=== PATIENT | female | born 1985 | race Asian ===

== ENCOUNTER 2016-07-17 15:10 | Emergency (ER) | payer BC ==
[2016-07-17] MEDS ORDERED: DUONEB INH ONE (17:45)
[2016-07-17] MEDS ORDERED: METHYLPRED SOD SUCC 125 MG/2 ML VIAL ONE (18:02)
[2016-07-17] MEDS ORDERED: KETOROLAC 30 MG/ML VIAL ONE (18:02)
[2016-07-17] MEDS ORDERED: SODIUM CHLORIDE 0.9% 1,000 ML ONE (18:03)
== END 2016-07-17 20:02 | disposition home or self-care (01) ==
LOC: ER 15:10
CPT/HCPCS: 71020; 93005; 96361; 96374